=== PATIENT | male | born 1995 | race Caucasian/White ===

== ENCOUNTER 2023-05-18 11:30 | Outpatient (AMB) | payer OTHER, SELFPAY ==
--- NOTE | 2023-05-18 11:33 | A.OFFPC_ITS ---
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 Intake Note: Pt is here to est care Allergies No Known Allergies Allergy (Verified 05/18/23 11:42) Medication List - Last Reconciled 05/18/23 by ALEX Whitlock No Known Home Meds Tobacco use date assessed: 05/18/23 Dental Screening Dental Screen Date: 05/18/23 Did you have a dental visit in the last 12 months?: No Did you have a dental problem in the last 6 months where you did not have access to dental care?: No Was dental information given to patient?: Patient has dentist HPI HPI Comments History of Present Illness Details Patient is a 27-year-old male in to [facility] care and have his physical exam. Patient has declined influenza vaccine today. He has declined this year's COVID booster. Patient will send his medical records from his previous provider. He states that he has not seen primary care provider and over 5 years. Patient has a chief complaint of left shoulder discomfort x5 days. He states the he was lifting weights doing a barbell press and his left shoulder gave out. He describes the sensation as feeling like it came out of place, but then quickly went back into place. Patient has not tried lifting weight since, but states he has no pain or discomfort. Denies tingling, numbness, chest pain, shortness a breath, dizziness. Patient states that he also has occasional bouts of anxiety. He states he notices most during social situation is. He is not interested in starting in the an SSRI at this time. He states that episodes occur only a couple times a month. Denies recent traumatic life events. He also offers a complaint of inability to concentrate when at school. He would like to get evaluated for ADHD. Patient will meet with in office community navigator to assist with ADHD evaluation. [facility] Family History Mother Breast cancer Social History (Updated 05/18/23 @ 11:49 by ALEX Whitlock) Housing: Condominium Alcohol intake: current Comment: once per week Patient Tobacco Use Status: Former Tobacco user Quit Date: quit 5 years ago e-Cigarette/Vaping Use: Former Use Second Hand Smoke Exposure: No service: No Current occupational status: unemployed Cognitive needs: No Hearing needs: No Vision needs: No Questionnaire PHQ-9 Over the last 2 weeks, how often have you been bothered by any of the following problems? 1. Little interest or pleasure in doing things: not at all 2. Feeling down, depressed, or hopeless: not at all 3. Trouble falling or staying asleep, or sleeping too much: not at all 4. Feeling tired or having little energy: not at all 5. Poor appetite or overeating: not at all 6. Feeling bad about yourself - or that you are a failure or have let yourself or your family down: not at all 7. Trouble concentrating on things, such as reading the newspaper or watching television: not at all 8. Moving or speaking so slowly that other people could have noticed. Or the opposite - being so fidgety or restless that you have been moving around a lot more than usual: not at all 9. Thoughts that you would be better off or of hurting yourself in some way: not at all Total score: 0 Depression Screening Interpretation: Negative Depression Screening Done: Yes 69822 - PHQ-9 Billing: Yes Source: Developed by Drs. José Miguel Jackson, Saloni Tobar, Krishan Zamora and colleagues, with an educational kamari from [employer]. Thrive Questionnaire Date Thrive assessed: 05/18/23 I am a: Patient What is your living situation today?: I have a steady place to live Within the past 12 months, did the food you bought not last and you didn't have the money to get more?: Never true Within the past 12 months, did you worry whether your food would run out before you got money to buy more?: Never true Do you have trouble paying for medicines?: No Do you have trouble getting transportation to medical appointments?: No Do you have trouble paying your heating and electricity bill?: No Do you have trouble taking care of your child, family member or friend?: No Do you have trouble with day-to-day activities such as bathing, preparing meals, shopping, managing finances, etc.?: No Are you currently unemployed and looking for a job?: No Are you interested in more education?: No THRIVE Score: 0 AUDIT C Alcohol Use Questionnaire (AUDIT-C) 1. How often do you have a drink containing alcohol?: 2-4 times a month 2. How many drinks containing alcohol do you have on a typical day when you are drinking?: 3 or 4 3. How often do you have six or more drinks on one occasion?: Monthly Total Score: 5 LALO-7 AMB Questionnaire LALO-7 Date LALO - 7 assessed: 05/18/23 Feeling nervous, anxious, or on edge: 1 = Several days Not being able to stop or control worryin = Several days Worrying too much about different things: 2 = More than half the days Trouble relaxin = Several days Being so restless that it is hard to sit still: 1 = Several days Becoming easily annoyed or irritable: 1 = Several days Feeling afraid as if something awful might happen: 1 = Several days Total LALO-7 score (0-4 normal; 5-9 mild; 10-14 moderate; 15-21 severe): 8 Source: Developed by Drs. José Miguel Jackson, Saloni Tobar, Krishan Zamora and colleagues, with an educational kamari from [employer]. LALO-7 Assessment Billing LALO-7 Assessment Tool: LALO-7 Assessment 31444 Review of Systems Const Details: Constitutional : No Weight loss, No Fever, No Chills, No Fatigue, No Malaise ENT/Mouth : No sore throat, No Rhinorrhea Eyes: No Eye Pain, No Swelling, No Redness Cardiovascular : No Chest Pain, No SOB, No Dyspnea on Exertion, No Orthopnea, No Edema, No Palpitations Respiratory : No Cough, No Sputum, No Wheezing Gastrointestinal : No Nausea, No Vomiting, No Diarrhea, No Constipation, No abdominal Pain, No Hematochezia, No Melena Genitourinary : No Dysuria, No Urinary Frequency, No Hematuria, Musculoskeletal : Left shoulder discomfort Skin : Patient states he has mole on left shoulder he thinks has increased in size. Neuro : No Weakness, No Numbness, No Dizziness, No Headache Psych : Admits occasional Anxiety/Panic, No Depression. Denies SI/HI. Heme/Lymph: No Bruising, No Bleeding,No Lymphadenopathy Endocrine : No Polyuria, No Polydipsia All other systems reviewed and are negative Physical exam (Primary Care) Vital Signs: Last Vital Signs Pulse 86 05/18/23 11:35 BP 132/84 05/18/23 11:35 Pulse Ox 95 05/18/23 11:35 Oxygen Delivery Method Room Air 05/18/23 11:35 Vital signs reviewed stable BMI result Body Mass Index 36.1 Tobacco/Smoking Status: Tobacco use Status Tobacco use date assessed 05/18/23 05/18/23 11:40 Patient Tobacco Use Status Former Tobacco user 05/18/23 11:49 e-Cigarette/Vaping Use Former Use 05/18/23 11:49 PHQ-9: PHQ-9 Score PHQ-9: Total score 0 05/22/23 10:07 Depression Screening Interpretation: Negative Thrive Assessment: Date of Thrive Assessment Date Thrive assessed 05/18/23 05/18/23 11:51 Const Other: Appearance: Alert.? Oriented X3.? No acute distress.? Head: Normocephalic, atraumatic Eyes: Pupils equal, round and reactive to light.?Red Reflex present. ENT: Pharynx normal.?Septum Midline. TM intact and pearly turner. Neck: Normal inspection.? Neck supple.?Full ROM. CVS: Normal heart rate and rhythm.? Pulses normal.? Respiratory: No respiratory distress.? Breath sounds normal.? Abdomen: Soft and nontender.? Skin: Skin warm and dry.? Normal skin color.? Normal skin turgor.?Patient has small atypical nevi on left shoulder. Extremities: Some crepitus of left shoulder. No point tenderness or obvious deformity. Back: No midline tenderness, no C-spine tenderness, full range of motion, no CVA tenderness bilaterally Neuro: Oriented X 3.? No motor deficit.? No sensory deficit. CN 2-12 intact Assessment and Plan Assessment & Plan (1) Encounter for routine adult physical exam with abnormal findings: Comment: Will draw labs. Code(s): Z00.01 - Encounter for general adult medical examination with abnormal findings (2) Shoulder pain: Comment: Patient will have x-ray of left shoulder. Patient does not want medications at this time Code(s): M25.519 - Pain in unspecified shoulder Qualifiers: Chronicity: acute Laterality: left Qualified Code(s): M25.512 - Pain in left shoulder (3) Anxiety: Comment: Patient declined SSRI. Will prescribe hydroxyzine p.r.n.. Patient will pursue therapy if incidences of anxiety increase or do not get better Code(s): F41.9 - Anxiety disorder, unspecified (4) Poor concentration: Comment: Patient will meet with in office community support associate for mental health services. Patient will get connected so he can have evaluation for ADHD. Code(s): R41.840 - Attention and concentration deficit (5) Atypical nevi: Comment: Patient has nevi on left shoulder with atypical borders. Will refer to dermatology. Code(s): D22.9 - Melanocytic nevi, unspecified Plan: Take your medications as prescribed. If you were prescribed antibiotics today, it is important that you take your medication to their entirety, do not skip any doses, do not finish them early. Follow-up with your primary care provider this week. Return to the emergency department with new or worsening symptoms. Such as fevers, chills, chest pain, shortness of breath, nausea, vomiting, dizziness, headache, vision changes, lethargy In case of emergency call 911 Orders: Orders Comprehensive Met. Panel 05/18/23 Z91.89 - Other specified personal risk factors, not elsewhere classified Vitamin B6 05/18/23 Z13.21 - Encounter for screening for nutritional disorder Vitamin B12 05/18/23 Z13.21 - Encounter for screening for nutritional disorder XR shoulder LT min 2V 05/18/23 M25.519 - Pain in unspecified shoulder Complete Blood Count Auto Diff 05/18/23 Z13.0 - Encounter for screening for diseases of the blood and blood-forming organs and certain disorders involving the immune mechanism Lipid Panel 05/18/23 E78.5 - Hyperlipidemia, unspecified TSH reflex Free T4 05/18/23 E03.9 - Hypothyroidism, unspecified UA CC w/rflx Micro + Cult 05/18/23 E86.0 - Dehydration Vitamin D 25-OH (D2 and D3) 05/18/23 Z13.21 - Encounter for screening for nutrit ional disorder Transglutaminase IgA 05/18/23 R14.0 - Abdominal distension (gaseous) Referrals Dermatology Referral D22.9 - Melanocytic nevi, unspecified Medications: New hydroxyzine HCl 25 mg PO BEDTIME PRN 20 tabs 0RF For anxiety Coding Level of Care Code New Pt Level 4 (40355) Diagnoses Encounter for routine adult physical exam with abnormal findings Z00.01 Acute pain of left shoulder M25.512 Chronicity: acute Laterality: left Anxiety F41.9 Poor concentration R41.840 Atypical nevi D22.9 Additional Codes LALO-7 Assessment Billing - LALO-7 Assessment Tool: LALO-7 Assessment 29717 ([id number]) Time Spent (min) 35
[2023-05-18 11:35] VITALS: BP 132/84; PULSE 86; O2SAT 95; BMI 36.1
== END 2023-05-18 14:49 | disposition home or self-care (01) ==
PROVIDERS: Visit Provider Nurse Practitioner Primary Care
DX: Z00.01 Encounter for general adult medical examination with abnormal findings (principal); M25.512 Pain in left shoulder; F41.9 Anxiety disorder, unspecified; R41.840 Attention and concentration deficit; D22.9 Melanocytic nevi, unspecified
CPT/HCPCS: 99204; 99385

== ENCOUNTER 2023-08-28 09:11 | Outpatient (REF) | payer OTHER, SELFPAY ==
[2023-08-28 10:30] LABS: MANUAL DIFF FLAG NO
[2023-08-28 10:33] LABS: Basophils Percent Auto 0.6 % (0-2); Eosinophils Absolute Auto 0.8 X10*3/uL (0.0-0.4); Eosinophils Percent Auto 11.5 % (0-4); Hematocrit 46.2 % (42.0-52.0); Hemoglobin 15.7 g/dl (14.0-18.0); Imm Gran Abs Auto 0.01 X10*3/uL (0.00-0.03); Imm Gran Pct Auto 0.1 % (0.0-0.4); Lymphocytes Percent Auto 28.7 % (20-40); Mean Corpuscular Hemoglobin 30.8 pg (27.0-33.0); Mean Corpuscular Volume 90.8 fL (80.0-98.0); Mean Platelet Volume 9.7 fL (9.4-12.4); Monocytes Absolute Auto 0.5 X10*3/uL (0.1-1.2); Monocytes Percent Auto 6.7 % (2-11); Neutrophils Absolute Auto 3.6 x10*3/uL (2.0-8.3); Neutrophils Percent Auto 52.4 % (45-73); Platelet Count 233 X10*3/uL (160-400); Red Blood Count 5.09 X10*6/uL (4.60-5.80); Red Cell Distribution Width 13.8 % (11.0-16.0); White Blood Count 6.9 X10*3/uL (4.8-10.8)
[2023-08-28 11:21] LABS: Alanine Aminotransferase 49 U/L (0-40); Albumin Level 4.9 g/dL (3.5-5.0); Alkaline Phosphatase 83 U/L (39-117); Anion Gap 12 (12-20); Aspartate Amino Transferase 30 U/L (5-37); Bilirubin Total 0.6 mg/dL (0.0-1.0); Blood Urea Nitrogen 15 mg/dL (9-16); Calcium 9.3 mg/dL (8.4-10.2); Carbon Dioxide 26 mmol/L (22-29); Chloride 105 mmol/L (96-108); Cholesterol 233 mg/dL (<200); Estimated Glomerular Filt Rate > 60; Glucose Random 84 mg/dL (60-115); HDL Cholesterol 41 mg/dL (>40); LDL Cholesterol Calculated 164 mg/dL (<100); Potassium 4.1 mmol/L (3.3-5.1); Sodium 139 mmol/L (135-145); Total Protein 8.3 g/dL (6.5-8.0); Triglycerides 141 mg/dL (<150)
[2023-08-28 11:37] LABS: TSH reflex Free T4 1.73 uIU/mL (0.32-4.0)
[2023-08-28 11:50] LABS: Vitamin B12 557 pg/mL (200-900)
[2023-08-29 14:23] LABS: Transglutaminase IgA <1.0 U/mL
[2023-09-01 16:49] LABS: Vitamin D 25-OH, D2 <4 ng/mL; Vitamin D 25-OH, D3 31 ng/mL; Vitamin D 25-OH, Total 31 ng/mL (30-100)
[2023-09-02 16:24] LABS: Vitamin B6 28.3 ng/mL (2.1-21.7)
== END 2023-08-28 09:12 | disposition home or self-care (01) ==
LOC: HO.HMGCLDS 09:11
PROVIDERS: PCP Nurse Practitioner Primary Care; Visit Provider Nurse Practitioner Primary Care
DX: Z13.21 Encounter for screening for nutritional disorder (principal); Z13.0 Encounter for screening for diseases of the blood and blood-forming organs and certain disorders involving the immune mechanism; E78.5 Hyperlipidemia, unspecified; E03.9 Hypothyroidism, unspecified; R14.0 Abdominal distension (gaseous); Z91.89 Other specified personal risk factors, not elsewhere classified
CPT/HCPCS: 36415; 80053; 80061; 82306; 82607; 84207; 84443; 85025; 86364

== ENCOUNTER 2024-05-17 13:30 | Outpatient (AMB) | payer OTHER, SELFPAY ==
--- NOTE | 2024-05-17 13:33 | A.OFFPC_ITS ---
Vital Signs 05/17/24 13:34 Height 5 ft 7.5 in Weight 119 lb 3 oz BMI 18.4 BP 128/76 Blood Pressure Location Lt brachial Position Sitting Pulse 92 Pulse Source Pulse Oximeter Pulse Oximetry (%) 98 Oxygen Delivery Method Room Air Intake Visit Reasons: Annual exam Allergies No Known Allergies Allergy (Verified 05/17/24 13:34) Medication List - Last Reconciled 05/17/24 by Xiomara Thurston MD No Known Home Meds Tobacco use date assessed: 05/17/24 Dental Screening Dental Screen Date: 05/17/24 Did you have a dental visit in the last 12 months?: Yes Did you have a dental problem in the last 6 months where you did not have access to dental care?: No Was dental information given to patient?: Patient has dentist HPI Annual exam HPI Details New patient Physical exam Chief Complaint Recurrent cystic lesions and anxiety management concerns. - The patient is a 28-year-old male pres enting with anxiety and recurrent cystic lesions. - Cystic lesions: A noticeable cyst pres ent for 6-8 months, under the chin left side, diminishes and enlarges intermittently, particularly on messing with it - Anxiety: Primarily situational, exacer bated by unfamiliar or large social settings, e.g., attending functions with spouse, displays somatic symptoms such as sweating and cold extremities. History of significant anxiety when visiting medical settings. Previous prescription of Hydroxyzine proved ineffective, self-administers Ashwagandha occasionally for symptom relief. - High cholesterol noted on prior blood work from July last year when the patient was heavier. Current weight management through diet and exercise; - stopped alcohol consumption. - Past possible depression linked to a d ifficult life phase; improvement attributed to lifestyle changes and familial support; significant weight loss achieved. - elevated lipids on last labs has lost significant amount of weight since Health Maintenance - Encouraged continuation of current t and exercise regimen for weight management. - Ordered repeat fasting laboratory test to monitor cholesterol levels: 10-hour fasting required. - Discussed vasectomy for contraception; referral to urologist for further management. Medications - Hydroxyzine for anxiety (ineffective) discontinued - Ashwagandha (OTC supplement) for stres s relief in social settings, used occasionally Social History - Currently unemployed, preparing for re location due to spouse's duty. - Recent cessation of alcohol, improved mental health, and significant weight loss. - Active lifestyle with regular exercise routine. - Patient resides with spouse; plan to c ease use of hormonal/IU contraceptive measures upon considering vasectomy. Family History - No known significant family medical, b ehavioral, or psychiatric history. Problem List - Cystic lesions - Anxiety - High cholesterol - History of substantial weight loss - Possible past depression - need vasectomy Patient Instructions - Avoid manipulating cysts to allow redu ction in size. - Adhere to dietary and exercise regimen . - Complete fasting for at least 10 hours prior to cholesterol blood work. 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 - Confirm vaccination status with [facility] and update as needed. - Expect contact from urologist for vase ctomy procedure arrangements. Set up telephone visit in 3 weeks to go over labs and to follow up on buspirone Review of Systems - Skin: Reports presence of cystic lesio ns on the underarm and rib region. - Anxiety: Reports anxiety in social set tings and when visiting medical facilities. - General: No fever no chills - Neurological: No headaches no dizzin ess - Ear nose throat: No sore throat no hearing difficulty no ear pain - Cardiovascular: No syncope, no chest pain, no palpitations - Gastrointestinal: No nausea vomiting or diarrhea - Endocrine: No polyuria polydipsia no heat intolerance - Genitourinary: No dysuria Physical Exam General: Cooperative, healthy appearing, comfortable, no acute distress Orientation: Patient oriented x3 Limitations: None Head: Normal to inspection Ears: Within normal limit visually Nose: Normal external nose present Face and sinus: Normal facial exam Eyes: Appearance normal, extraocular movement intact pupils reactive Neck: Normal visual inspection and supple Respiratory: Normal respiratory effort and able to speak in complete sentences. Clear to auscultation, no stridor Cardiovascular: S1 and S2 GI: Normal to inspection. Soft to palpation and nontender Skin: Turgor normal, no acute findings. Presence of a small cyst under the skin, not inflamed or tender Neuro: Patient oriented x3, motor sensory intact, balance intact, tandem pass Extremities: Normal to inspection, no swelling or joint issues noted PFSH Family History Mother Breast cancer Social History Housing: Condominium Alcohol intake: current Comment: once per week Patient Tobacco Use Status: Former Tobacco user e-Cigarette/Vaping Use: Former Use Second Hand Smoke Exposure: No service: No Current occupational status: unemployed Cognitive needs: No Hearing needs: No Vision needs: No Questionnaire PHQ-9 Over the last 2 weeks, how often have you been bothered by any of the following problems? 1. Little interest or pleasure in doing things: not at all 2. Feeling down, depressed, or hopeless: not at all 3. Trouble falling or staying asleep, or sleeping too much: several days 4. Feeling tired or having little energy: not at all 5. Poor appetite or overeating: not at all 6. Feeling bad about yourself - or that you are a failure or have let yourself or your family down: not at all 7. Trouble concentrating on things, such as reading the newspaper or watching television: nearly every day 8. Moving or speaking so slowly that other people could have noticed. Or the opposite - being so fidgety or restless that you have been moving around a lot more than usual: not at all 9. Thoughts that you would be better off or of hurting yourself in some way: not at all Total score: 4 Depression Screening Interpretation: Negative Depression Screening Done: Yes 12311 - PHQ-9 Billing: Yes Source: Developed by Drs. José Miguel Jackson, Saloni Tobar, Krishan Zamora and colleagues, with an educational kamari from [employer]. Thrive Questionnaire Date Thrive assessed: 05/17/24 I am a: Patient What is your living situation today?: I have a steady place to live Within the past 12 months, did the food you bought not last and you didn't have the money to get more?: Never true Within the past 12 months, did you worry whether your food would run out before you got money to buy more?: Never true Do you have trouble paying for medicines?: No Do you have trouble getting transportation to medical appointments?: No Do you have trouble paying your heating and electricity bill?: No Do you have trouble taking care of your child, family member or friend?: No Do you have trouble with day-to-day activities such as bathing, preparing meals, shopping, managing finances, etc.?: No Are you currently unemployed and looking for a job?: No Are you interested in more education?: No Please select the resources that you would like help with: None Currently or been in a relationship where the following occur: No concerns reported THRIVE Score: 0 AUDIT C Alcohol Use Questionnaire (AUDIT-C) 1. How often do you have a drink containing alcohol?: Monthly or less 2. How many drinks containing alcohol do you have on a typical day when you are drinking?: 1 or 2 3. How often do you have six or more drinks on one occasion?: Never Total Score: 1 Score Reviewed/Action Taken: Yes LALO-7 AMB Questionnaire LALO-7 Date LALO - 7 assessed: 05/17/24 Feeling nervous, anxious, or on edge: 1 = Several days Not being able to stop or control worryin = Several days Worrying too much about different things: 1 = Several days Trouble relaxin = Several days Being so restless that it is hard to sit still: 1 = Several days Becoming easily annoyed or irritable: 1 = Several days Feeling afraid as if something awful might happen: 0 = Not at all Total LALO-7 score (0-4 normal; 5-9 mild; 10-14 moderate; 15-21 severe): 6 Source: Developed by Drs. José Miguel Jackson, Saloni Tobar, Krishan Zamora and colleagues, with an educational kamari from [employer]. LALO-7 Assessment Billing LALO-7 Assessment Tool: LALO-7 Assessment 70681 Physical exam (Primary Care) Vital Signs: Last Vital Signs Pulse 92 05/17/24 13:34 BP 128/76 05/17/24 13:34 Pulse Ox 98 05/17/24 13:34 Oxygen Delivery Method Room Air 05/17/24 13:34 BMI result Body Mass Index 33.8 Tobacco/Smoking Status: Tobacco use Status Tobacco use date assessed 05/17/24 05/17/24 13:36 Patient Tobacco Use Status Former Tobacco user 05/17/24 13:36 e-Cigarette/Vaping Use Former Use 05/17/24 13:36 PHQ-9: PHQ-9 Score PHQ-9: Total score 4 05/17/24 13:36 Depression Screening Interpretation: Negative Thrive Assessment: Date of Thrive Assessment Date Thrive assessed 01/17/25 01/17/25 13:39 Currently or been in a relationship where the following occur: No concerns reported Coding Level of Care Code New Pt Level 4 (63150) New Pt Prev Care 18-39yr(30532 Diagnoses Encounter for routine adult physical exam with abnormal findings Z00.01 Anxiety F41.9 Lipid disorder E78.9 Encounter for vasectomy counseling Z30.09 Additional Codes LALO-7 Assessment Billing - LALO-7 Assessment Tool: LALO-7 Assessment 81174 ([id number]) PHQ-9 - 43995 - PHQ-9 Billing: Yes ([id number]) Assessment & Plan Assessment & Plan (1) Encounter for routine adult physical exam with abnormal findings: Comment: Will draw labs. Code(s): Z00.01 - Encounter for general adult medical examination with abnormal findings Category: Medical (2) Anxiety: Comment: Patient declined SSRI. Will prescribe hydroxyzine p.r.n.. Patient will pursue therapy if incidences of anxiety increase or do not get better Code(s): F41.9 - Anxiety disorder, unspecified Category: Medical (3) Lipid disorder: Code(s): E78.9 - Disorder of lipoprotein metabolism, unspecified Category: Medical (4) Encounter for vasectomy counseling: Code(s): Z30.09 - Encounter for other general counseling and advice on contraception Category: Medical Plan New patient Physical exam Chief Complaint Recurrent cystic lesions and anxiety management concerns. - The patient is a 28-year-old male presenting with anxiety and recurrent cystic lesions. - Cystic lesions: A noticeable cyst present for 6-8 months, under the chin left side, diminishes and enlarges intermittently, particularly on messing with it - Anxiety: Primarily situational, exacerbated by unfamiliar or large social settings, e.g., attending functions with spouse, displays somatic symptoms such as sweating and cold extremities. History of significant anxiety when visiting medical settings. Previous prescription of Hydroxyzine proved ineffective, self-administers Ashwagandha occasionally for symptom relief. - High cholesterol noted on prior blood work from July last year when the patient was heavier. Current weight management through diet and exercise; - stopped alcohol consumption. - Past possible depression linked to a difficult life phase; improvement attributed to lifestyle changes and familial support; significant weight loss achieved. - elevated lipids on last labs has lost significant amount of weight since Health Maintenance - Encouraged continuation of current diet and exercise regimen for weight management. - Ordered repeat fasting laboratory test to monitor cholesterol levels: 10-hour fasting required. - Discussed vasectomy for contraception; referral to urologist for further management. Medications - Hydroxyzine for anxiety (ineffective) discontinued - Ashwagandha (OTC supplement) for stress relief in social settings, used occasionally Social History - Currently unemployed, preparing for relocation due to spouse's duty. - Recent cessation of alcohol, improved mental health, and significant weight loss. - Active lifestyle with regular exercise routine. - Patient resides with spouse; plan to cease use of hormonal/IU contraceptive measures upon considering vasectomy. Family History - No known significant family medical, behavioral, or psychiatric history. Problem List - Cystic lesions - Anxiety - High cholesterol - History of substantial weight loss - Possible past depression - need vasectomy Patient Instructions - Avoid manipulating cysts to allow reduction in size. - Adhere to dietary and exercise regimen. - Complete fasting for at least 10 hours prior to cholesterol blood work. 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 - Confirm vaccination status with pharmacy and update as needed. - Expect contact from urologist for vasectomy procedure arrangements. Set up telephone visit in 3 weeks to go over labs and to follow up on buspirone Orders: Orders Complete Blood Count Auto Diff Today E78.9 - Disorder of lipoprotein metabolism, unspecified, F41.9 - Anxiety disorder, unspecified, Z00.01 - Encounter for general adult medical examination with abnormal findings Comprehensive [place]. Panel Fast Today E78.9 - Disorder of lipoprotein metabolism, unspecified, F41.9 - Anxiety disorder, unspecified, Z00.01 - Encounter for general adult medical examination with abnormal findings Lipid Panel Today E78.9 - Disorder of lipoprotein metabolism, unspecified, F41.9 - Anxiety disorder, unspecified, Z00.01 - Encounter for general adult medical examination with abnormal findings TSH reflex Free T4 Today E78.9 - Disorder of lipoprotein metabolism, unsp ecified, F41.9 - Anxiety disorder, unspecified, Z00.01 - Encounter for general adult medical examination with abnormal findings Referrals Urology Referral Z30.09 - Encounter for other general counseling and advice on contraception Medications: New buspirone 5 mg PO BID 30 tabs 0RF
[2024-05-17 13:34] VITALS: BP 128/76; PULSE 92; O2SAT 98; BMI 18.4
== END 2024-05-17 13:58 | disposition home or self-care (01) ==
PROVIDERS: PCP Nurse Practitioner Primary Care; Visit Provider Internal Medicine
DX: Z00.00 Encounter for general adult medical examination without abnormal findings (principal); F41.9 Anxiety disorder, unspecified; E78.9 Disorder of lipoprotein metabolism, unspecified

== ENCOUNTER → 2024-05-17 13:30 | Outpatient (BNVA) | payer OTHER, SELFPAY | PROVIDERS: PCP Nurse Practitioner Primary Care; Visit Provider Internal Medicine | DX: Z00.01 Encounter for general adult medical examination with abnormal findings (principal); F41.9 Anxiety disorder, unspecified; E78.9 Disorder of lipoprotein metabolism, unspecified | CPT/HCPCS: 96127; 99202 ==

== ENCOUNTER → 2024-06-13 07:58 | Outpatient (BNVA) | payer OTHER, SELFPAY | PROVIDERS: PCP Nurse Practitioner Primary Care; Visit Provider Internal Medicine ==

== ENCOUNTER 2024-07-12 08:49 | Outpatient (AMB) | payer OTHER, SELFPAY ==
--- NOTE | 2024-07-12 08:54 | MHC.OFFVIS ---
Intake Visit Reasons: vasectomy consult Intake Note: New patient presents today for initial visit for a vasectomy consult Urology Medication:none Blood Thinner:none Antibiotic Allergies:none Allergies No Known Allergies Allergy (Verified 07/12/24 08:56) HPI Comments Details: 07/12/24--Filipe is a 28-year-old male presenting with the intent to undergo vasectomy for permanent contraception. He currently has two children and has expressed a definitive interest in not having more. During the session, we extensively discussed the vasectomy procedure, outlining its irreversible nature and illustrating the surgical steps and anatomical implications. Additionally, the consultation covered potential post-operative outcomes and complications, the typical pain and discomfort experienced, and possible rare complications. The patient showed comprehension of the details provided during the consultation and was reminded about the mandatory 30-day wait before scheduling to ensure ample deliberation time. PFSH Family History Mother Breast cancer Social History Housing: Condominium Alcohol intake: current Comment: once per week Patient Tobacco Use Status: Former Tobacco user e-Cigarette/Vaping Use: Former Use Second Hand Smoke Exposure: No service: No Current occupational status: unemployed Cognitive needs: No Hearing needs: No Vision needs: No Review of Systems Const All systems reviewed & are unremarkable except as noted in HPI and below Reports no additional complaints Eyes Reports no additional complaints ENT Reports no additional complaints Card Reports no additional complaints Resp Reports no additional complaints GI Reports no additional complaints Reports as per HPI Musc Reports no additional complaints Skin/Breast Reports system reviewed and no additional complaints, except as documented Neuro Reports no additional complaints Psych Reports no additional complaints Endo Reports no additional complaints Jhoan/Lymph Reports no additional complaints Aller/Immun Reports no additional complaints Physical Exam Const General: healthy appearing, no acute distress and well developed Orientation/consciousness: patient oriented x3 HEENT Head: Yes normocephalic and Yes atraumatic Eyes Conjunctivae: conjunctivae normal Neck Neck: Yes normal visual inspection Chest Chest palpation & inspection: normal inspection of the chest Resp Effort & Inspection: normal respiratory effort GI Inspection: Yes normal to inspection Neuro General: patient oriented x3 Extrem General: No pedal edema Psych Appearance: grossly normal Affect: normal affect Assessment & Plan Assessment & Plan (1) Encounter for vasectomy counseling: Code(s): Z30.09 - Encounter for other general counseling and advice on contraception Category: Medical (2) Anxiety about health: Code(s): R45.89 - Other symptoms and signs involving emotional state Category: Medical Plan Vasectomy procedure was discussed at length with the patient. He was informed that vasectomy is a safe, permanent, and effective form of control but there are risks involved. It may involve risk of hematoma, procedure failure which is rare, sperm granuloma which may cause mild pain, and congestion which may cause sense of pressure and generally resolves after several weeks. Also discussed is the reported post vasectomy pain syndrome with chronic testicular pain which is uncommon <5%. Schedule office procedure with Dr. Gomez Patient Instructions: The patient had an opportunity to ask questions regarding treatment plan. The patient expressed understanding and agreement with the above treatment plan. The patient is aware they should contact our office by phone for worsening of their current condition or the appearance of new symptoms. Compliance is encouraged with any medications and followup testing that is ordered. It is a privilege to be allowed the opportunity to participate in the urologic care of your patient. If you have any questions or concerns regarding treatment for the above conditions please do not hesitate to contact me. The office telephone contact is [phone]. This note is constructed in part using voice recognition software. 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 Yours sincerely, Pat Garza MD Scribe Plan - Not visible on output: Patient was informed and verbally consented to the use of an ambient scribe for clinic note documentation during this visit. Coding Level of Care Code New Pt Level 4 (50222) Diagnoses Encounter for vasectomy counseling Z30.09 Anxiety about health R45.89
== END 2024-07-12 09:50 | disposition home or self-care (01) ==
LOC: HO.HUSH 08:50
PROVIDERS: PCP Internal Medicine; Visit Provider Urology
DX: Z30.09 Encounter for other general counseling and advice on contraception (principal); R45.89 Other symptoms and signs involving emotional state
CPT/HCPCS: 99204

== ENCOUNTER → 2024-07-12 08:49 | Outpatient (BNVA) | payer OTHER, SELFPAY | PROVIDERS: PCP Internal Medicine; Visit Provider Urology | DX: F41.8 Other specified anxiety disorders (principal); R45.89 Other symptoms and signs involving emotional state; Z30.09 Encounter for other general counseling and advice on contraception | CPT/HCPCS: 99202 ==